=== PATIENT | male | born 1970 | race Two or more races ===

== ENCOUNTER 2024-01-29 13:59 | Outpatient (RCR) | payer MEDICAID, SELFPAY | END 2024-02-11 23:59 | disposition home or self-care (01) | LOC: SCTC 13:59 | PROVIDERS: PCP Licensed Vocational Nurse; Referring Provider Internal Medicine; Visit Provider Nurse Practitioner Family | DX: E53.8 Deficiency of other specified B group vitamins (principal); Z86.2 Personal history of diseases of the blood and blood-forming organs and certain disorders involving the immune mechanism | CPT/HCPCS: 99212; G0463 ==

== ENCOUNTER 2024-03-23 13:24 | Outpatient (RCR) | payer MEDICAID, SELFPAY | END 2024-04-10 23:59 | disposition home or self-care (01) | LOC: SCTC 13:24 | PROVIDERS: PCP Licensed Vocational Nurse; Referring Provider Licensed Vocational Nurse; Visit Provider Nurse Practitioner Family | DX: E53.8 Deficiency of other specified B group vitamins (principal) | CPT/HCPCS: 96372; J3420 ==

== ENCOUNTER 2024-04-20 10:18 | Outpatient (RCR) | payer MEDICAID, SELFPAY | END 2024-05-11 23:59 | disposition home or self-care (01) | LOC: SCTC 10:18 | PROVIDERS: PCP Licensed Vocational Nurse; Referring Provider Licensed Vocational Nurse; Visit Provider Nurse Practitioner Family | DX: E53.8 Deficiency of other specified B group vitamins (principal); Z86.2 Personal history of diseases of the blood and blood-forming organs and certain disorders involving the immune mechanism | CPT/HCPCS: 96372; J3420 ==

== ENCOUNTER 2024-05-21 10:12 | Outpatient (RCR) | payer MEDICAID, SELFPAY | END 2024-06-10 23:59 | disposition home or self-care (01) | LOC: SCTC 10:12 | PROVIDERS: PCP Licensed Vocational Nurse; Referring Provider Licensed Vocational Nurse; Visit Provider Nurse Practitioner Family | DX: E53.8 Deficiency of other specified B group vitamins (principal); D64.9 Anemia, unspecified | CPT/HCPCS: 96372; J3420 ==

== ENCOUNTER 2024-06-18 08:43 | Outpatient (RCR) | payer MEDICAID, SELFPAY | END 2024-07-11 23:59 | disposition home or self-care (01) | LOC: SCTC 08:43 | PROVIDERS: PCP Licensed Vocational Nurse; Referring Provider Licensed Vocational Nurse; Visit Provider Nurse Practitioner Family | DX: E53.8 Deficiency of other specified B group vitamins (principal); D64.9 Anemia, unspecified | CPT/HCPCS: 96372; J3420 ==

== ENCOUNTER 2024-07-29 14:20 | Outpatient (RCR) | payer MEDICAID, SELFPAY | END 2024-08-10 23:59 | disposition home or self-care (01) | LOC: SCTC 14:20 | PROVIDERS: PCP Licensed Vocational Nurse; Referring Provider Licensed Vocational Nurse; Visit Provider Nurse Practitioner Family | DX: D64.9 Anemia, unspecified (principal); E53.8 Deficiency of other specified B group vitamins; R73.03 Prediabetes; F10.11 Alcohol abuse, in remission; Z71.41 Alcohol abuse counseling and surveillance of alcoholic; K64.9 Unspecified hemorrhoids | CPT/HCPCS: 96372; 99212; J3420; G0463 ==

== ENCOUNTER 2024-08-13 08:49 | Outpatient (RCR) | payer MEDICAID, SELFPAY | END 2024-09-10 23:59 | disposition home or self-care (01) | LOC: SCTC 08:49 | PROVIDERS: PCP Licensed Vocational Nurse; Referring Provider Licensed Vocational Nurse; Visit Provider Internal Medicine Hematology & Oncology | DX: E53.8 Deficiency of other specified B group vitamins (principal) | CPT/HCPCS: 96372; J3420 ==

== ENCOUNTER 2024-09-15 09:24 | Outpatient (RCR) | payer MEDICAID, SELFPAY | END 2024-10-11 23:59 | disposition home or self-care (01) | LOC: SCTC 09:24 | PROVIDERS: PCP Licensed Vocational Nurse; Referring Provider Licensed Vocational Nurse; Visit Provider Nurse Practitioner Family | DX: E53.8 Deficiency of other specified B group vitamins (principal) | CPT/HCPCS: 96372; J3420 ==

== ENCOUNTER 2024-10-16 09:18 | Outpatient (RCR) | payer MEDICAID, SELFPAY | END 2024-11-10 23:59 | disposition home or self-care (01) | LOC: SCTC 09:18 | PROVIDERS: PCP Licensed Vocational Nurse; Referring Provider Licensed Vocational Nurse; Visit Provider Internal Medicine Hematology & Oncology | DX: E53.8 Deficiency of other specified B group vitamins (principal); D64.9 Anemia, unspecified | CPT/HCPCS: 96372; J3420 ==

== ENCOUNTER 2024-11-16 09:53 | Outpatient (RCR) | payer MEDICAID, SELFPAY | END 2024-12-11 23:59 | disposition home or self-care (01) | LOC: SCTC 09:53 | PROVIDERS: PCP Licensed Vocational Nurse; Referring Provider Licensed Vocational Nurse; Visit Provider Nurse Practitioner Family | DX: E53.8 Deficiency of other specified B group vitamins (principal); D64.9 Anemia, unspecified | CPT/HCPCS: 96372; J3420 ==

== ENCOUNTER 2024-12-16 09:44 | Outpatient (RCR) | payer MEDICAID, SELFPAY | END 2025-01-10 23:59 | disposition home or self-care (01) | LOC: SCTC 09:44 | PROVIDERS: PCP Licensed Vocational Nurse; Referring Provider Licensed Vocational Nurse; Visit Provider Internal Medicine Hematology & Oncology | DX: E53.8 Deficiency of other specified B group vitamins (principal) | CPT/HCPCS: 96372; J3420 ==

== ENCOUNTER 2025-02-01 09:44 | Outpatient (RCR) | payer MEDICAID, SELFPAY | END 2025-02-10 23:59 | disposition home or self-care (01) | LOC: SCTC 09:44 | PROVIDERS: PCP Licensed Vocational Nurse; Referring Provider Licensed Vocational Nurse; Visit Provider Nurse Practitioner Family | DX: E53.8 Deficiency of other specified B group vitamins (principal); Z86.2 Personal history of diseases of the blood and blood-forming organs and certain disorders involving the immune mechanism; R73.03 Prediabetes; F10.11 Alcohol abuse, in remission; Z71.41 Alcohol abuse counseling and surveillance of alcoholic; Z87.19 Personal history of other diseases of the digestive system | CPT/HCPCS: 96372; 99212; J3420; G0463 ==